=== PATIENT | male | born 1945 | race Caucasian/White ===

== ENCOUNTER 2021-01-23 13:04 | Observation (INO) | payer OTHER ==
[2021-01-23 13:49] LABS: BASO % 0.8 % (0-2.0); EOS % 0.5 % (0-4.5); HEMATOCRIT 45.1 % (35.4-49); HEMOGLOBIN 15.8 GM/dL (11.7-16.9); LYMPH % 23.2 % (8-40); MCH 30.2 pg (25.7-33.7); MEAN CELL VOLUME 86.5 fl (80-96); MEAN PLT VOLUME 9.6 fl (7.5-11.1); MONO % 11.9 % (3.8-10.2); NEUT % 63.6 % (42.8-82.8); PLATELET COUNT 117 10^3/uL (134-434); RBC 5.21 M/mm3 (4.00-5.60); RDW 14.1 % (11.9-15.9); WHITE BLOOD COUNT 5.1 K/mm3 (4.0-10.0)
[2021-01-23 14:13] LABS: CALCIUM 8.8 mg/dL (8.5-10.1)
[2021-01-23 14:14] LABS: ALBUMIN 4.1 g/dl (3.4-5.0); BLOOD UREA NITROGEN 15.4 mg/dL (7-18)
[2021-01-23] MEDS ORDERED: SODIUM CHLORIDE 0.9% 500 ML INFUS.BAG IV ONE (14:17)
[2021-01-23 14:18] LABS: BILIRUBIN,TOTAL 0.7 mg/dL (0.2-1)
[2021-01-23 14:19] LABS: TOT PROT 7.1 g/dl (6.4-8.2)
[2021-01-23] MEDS ORDERED: POTASSIUM CHLORIDE ORAL LIQUID 20 MEQ/15 ML PO ONE (14:25)
[2021-01-23] MEDS ORDERED: POTASSIUM CHLORIDE ORAL LIQUID 20 MEQ/15 ML ONE (14:39)
[2021-01-23 14:46] LABS: URINE APPEARANCE CLEAR; URINE BILIRUBIN NEGATIVE (NEGATIVE); URINE COLOR YELLOW; URINE GLUCOSE (UA) NEGATIVE (NEGATIVE); URINE KETONE NEGATIVE (NEGATIVE); URINE LEUK ESTERASE NEGATIVE (NEGATIVE); URINE NITRITE NEGATIVE (NEGATIVE); URINE PROTEIN TRACE (NEGATIVE)
[2021-01-23] MEDS ORDERED: SODIUM CHLORIDE 1,000 ML IV SCH (17:15)
[2021-01-23] MEDS ORDERED: ONDANSETRON 4 MG/2 ML VIAL IVPUSH PRN (17:43)
[2021-01-23] MEDS ORDERED: LATANOPROST 0.005% OPHTH SOLN 2.5ML BOTTLE OU SCH (17:45)
[2021-01-23] MEDS ORDERED: KETOROLAC TROMETHAMINE 0.5% EYE DROP 1 DROP DROPS OP SCH (17:45)
[2021-01-23] MEDS: traZODone HCL 50 MG TABLET (FP) PO SCH (22:17)
[2021-01-23] MEDS: ROSUVASTATIN CA 20 MG TABLET (FP) PO SCH (22:17)
[2021-01-23] MEDS: INSULIN SLIDING SCALE (NOVOLOG) 1 VIAL SQ SCH (22:18)
[2021-01-24 01:20] VITALS: BMI 27.8
[2021-01-24] MEDS: INSULIN SLIDING SCALE (NOVOLOG) 1 VIAL SQ SCH ×4 (06:11→22:01)
[2021-01-24 07:10] LABS: ALBUMIN 3.8 g/dl (3.4-5.0); CALCIUM 8.7 mg/dL (8.5-10.1)
[2021-01-24 07:11] LABS: BLOOD UREA NITROGEN 11.5 mg/dL (7-18)
[2021-01-24 07:12] LABS: BILIRUBIN,TOTAL 0.7 mg/dL (0.2-1); TOT PROT 6.6 g/dl (6.4-8.2)
[2021-01-24] MEDS: ENALAPRIL MALEATE 10 MG TABLET PO SCH (09:21)
[2021-01-24] MEDS: PANTOPRAZOLE 40 MG TABLET PO SCH (09:21)
[2021-01-24] MEDS: ALLOPURINOL 300 MG TABLET (FP) PO SCH (09:21)
[2021-01-24] MEDS: ENOXAPARIN NA (PORCINE) 40 MG/0.4 ML DISP.SYRIN SQ SCH (09:22)
[2021-01-24] MEDS ORDERED: SODIUM CHLORIDE 500 ML IV STA (10:10)
[2021-01-24] MEDS: KETOROLAC TROMETHAMINE 0.5% EYE DROP 1 DROP DROPS OU SCH ×2 (17:21→22:01)
[2021-01-24] MEDS ORDERED: PT OWN MED DRAWER 7, Y5N ONE (21:48)
[2021-01-24] MEDS: traZODone HCL 50 MG TABLET (FP) PO SCH (21:59)
[2021-01-24] MEDS: ROSUVASTATIN CA 20 MG TABLET (FP) PO SCH (21:59)
[2021-01-24] MEDS: LATANOPROST 0.005% OPHTH SOLN 2.5ML BOTTLE OU SCH (22:00)
[2021-01-25] MEDS: INSULIN SLIDING SCALE (NOVOLOG) 1 VIAL SQ SCH ×4 (06:16→21:16)
[2021-01-25 07:31] LABS: HEMATOCRIT 47.3 % (35.4-49); HEMOGLOBIN 16.1 GM/dL (11.7-16.9); MCH 30.1 pg (25.7-33.7); MEAN CELL VOLUME 88.6 fl (80-96); MEAN PLT VOLUME 9.9 fl (7.5-11.1); PLATELET COUNT 114 10^3/uL (134-434); RBC 5.34 M/mm3 (4.00-5.60); WHITE BLOOD COUNT 5.3 K/mm3 (4.0-10.0)
[2021-01-25] MEDS: PATIENT'S OWN MEDICATION (NON-FORMULARY) (Olopatadine Hcl [Olopatadine Hcl] 2.5 ML Drops) SCH ×2 (07:37→07:38)
[2021-01-25 07:58] LABS: ALBUMIN 4.2 g/dl (3.4-5.0); BLOOD UREA NITROGEN 13.5 mg/dL (7-18); MAGNESIUM 2.1 mg/dL (1.8-2.4)
[2021-01-25 08:01] LABS: CREATININE 0.9 mg/dL (0.55-1.3); PHOSPHOROUS 3.2 mg/dL (2.5-4.9)
[2021-01-25 08:03] LABS: BILIRUBIN,TOTAL 0.8 mg/dL (0.2-1)
[2021-01-25] MEDS ORDERED: PT OWN MED DRAWER 7, Y5N ONE (08:41)
[2021-01-25] MEDS: ACETAMINOPHEN 325 MG TABLET (FP) PO PRN ×2 (08:54→20:10)
[2021-01-25] MEDS ORDERED: POTASSIUM CHLORIDE ORAL LIQUID 20 MEQ/15 ML PO ONE (09:00)
[2021-01-25] MEDS: ENALAPRIL MALEATE 10 MG TABLET PO SCH (09:02)
[2021-01-25] MEDS: ALLOPURINOL 300 MG TABLET (FP) PO SCH (09:02)
[2021-01-25] MEDS: PANTOPRAZOLE 40 MG TABLET PO SCH (09:03)
[2021-01-25] MEDS: ENOXAPARIN NA (PORCINE) 40 MG/0.4 ML DISP.SYRIN SQ SCH (09:04)
[2021-01-25] MEDS: KETOROLAC TROMETHAMINE 0.5% EYE DROP 1 DROP DROPS OU SCH ×4 (09:04→21:16)
[2021-01-25] MEDS: SODIUM CHLORIDE 1,000 ML IV SCH (10:57)
[2021-01-25] MEDS ORDERED: traZODone HCL 50 MG TABLET (FP) PO SCH (14:44)
[2021-01-25] MEDS: ROSUVASTATIN CA 20 MG TABLET (FP) PO SCH (21:16)
[2021-01-25] MEDS: LATANOPROST 0.005% OPHTH SOLN 2.5ML BOTTLE OU SCH (21:16)
[2021-01-26 00:40] LABS: N-TERMINAL BNP 84.9 pg/ml (5-450)
[2021-01-26] MEDS: INSULIN SLIDING SCALE (NOVOLOG) 1 VIAL SQ SCH ×3 (06:15→17:12)
[2021-01-26 07:34] LABS: HEMATOCRIT 48.5 % (35.4-49); HEMOGLOBIN 16.3 GM/dL (11.7-16.9); MCH 29.8 pg (25.7-33.7); MCHC 33.5 g/dl (32.0-35.9); MEAN CELL VOLUME 88.9 fl (80-96); MEAN PLT VOLUME 9.9 fl (7.5-11.1); PLATELET COUNT 120 10^3/uL (134-434); RBC 5.46 M/mm3 (4.00-5.60); RDW 14.1 % (11.9-15.9); WHITE BLOOD COUNT 4.6 K/mm3 (4.0-10.0)
[2021-01-26 07:53] LABS: ALBUMIN 4.1 g/dl (3.4-5.0); BLOOD UREA NITROGEN 10.4 mg/dL (7-18); CALCIUM 8.8 mg/dL (8.5-10.1)
[2021-01-26 07:57] LABS: CREATININE 0.8 mg/dL (0.55-1.3); PHOSPHOROUS 3.1 mg/dL (2.5-4.9)
[2021-01-26 07:58] LABS: BILIRUBIN,TOTAL 0.9 mg/dL (0.2-1); TOT PROT 7.1 g/dl (6.4-8.2)
[2021-01-26] MEDS: ENALAPRIL MALEATE 10 MG TABLET PO SCH (09:17)
[2021-01-26] MEDS: PANTOPRAZOLE 40 MG TABLET PO SCH (09:17)
[2021-01-26] MEDS: ALLOPURINOL 300 MG TABLET (FP) PO SCH (09:17)
[2021-01-26] MEDS: ENOXAPARIN NA (PORCINE) 40 MG/0.4 ML DISP.SYRIN SQ SCH (09:17)
[2021-01-26] MEDS: KETOROLAC TROMETHAMINE 0.5% EYE DROP 1 DROP DROPS OU SCH ×3 (09:17→17:12)
[2021-01-26] MEDS ORDERED: POTASSIUM CHLORIDE ORAL LIQUID 20 MEQ/15 ML PO ONE (09:30)
[2021-01-26] MEDS ORDERED: POTASSIUM CHLORIDE TABS 20 MEQ TABLET.ER (FP) PO SCH (10:00)
[2021-01-26] MEDS: SODIUM CHLORIDE 1,000 ML IV SCH (13:02)
[2021-01-26] MEDS ORDERED: DOBUTAMINE HCL 100,000 MCG in DEXTROSE 5%-WATER - 92 ML IVPB ONE (14:30)
[2021-01-26 14:51] VITALS: BP 153/89; PULSE 52; TEMP 98
== END 2021-01-26 18:15 | disposition home or self-care (01) ==
LOC: JER 13:04 → JERBED 13:58 → INTOOBSV 13:58 → J4S 19:19
PROVIDERS: ADMIT Internal Medicine; ATTEND Internal Medicine
PROC: 3E033GC Introduction of Other Therapeutic Substance into Peripheral Vein, Percutaneous Approach (ICD-10-PCS; principal; 2021-01-23)
PROC: 3E0337Z Introduction of Electrolytic and Water Balance Substance into Peripheral Vein, Percutaneous Approach (ICD-10-PCS; 2021-01-23)
PROC: 3E013GC Introduction of Other Therapeutic Substance into Subcutaneous Tissue, Percutaneous Approach (ICD-10-PCS; 2021-01-23)
DX: E87.1 Hypo-osmolality and hyponatremia (principal); E86.0 Dehydration; R55 Syncope and collapse; E87.6 Hypokalemia; I10 Essential (primary) hypertension; I25.10 Atherosclerotic heart disease of native coronary artery without angina pectoris; I25.2 Old myocardial infarction; E11.9 Type 2 diabetes mellitus without complications; M19.90 Unspecified osteoarthritis, unspecified site; M10.9 Gout, unspecified; R00.1 Bradycardia, unspecified; Z79.4 Long term (current) use of insulin; Z95.5 Presence of coronary angioplasty implant and graft; H53.8 Other visual disturbances; R53.81 Other malaise; R42 Dizziness and giddiness
CPT/HCPCS: 36415; 70450-TC; 71045-TC-FY; 72125-TC; 80053; 80061; 81003; 82550; 82553; 82962; 83036; 83721; 83735; 83880; 84100; 84443; 84484; 85025; 85027; 87086; 93005; 93010; 93306-TC; 93351; 93880-TC; 96361; 96365; 96366; 96372; 99285-25; C9803; G0378; U0003; U0005

== ENCOUNTER 2021-01-28 19:39 | Inpatient (IN) | payer OTHER ==
[2021-01-28 20:59] LABS: BASO % 0.5 % (0-2.0); EOS % 1.2 % (0-4.5); HEMATOCRIT 47.9 % (35.4-49); HEMOGLOBIN 16.2 GM/dL (11.7-16.9); LYMPH % 36.6 % (8-40); MCH 30.1 pg (25.7-33.7); MCHC 33.9 g/dl (32.0-35.9); MEAN CELL VOLUME 88.8 fl (80-96); MEAN PLT VOLUME 10.3 fl (7.5-11.1); MONO % 12.5 % (3.8-10.2); NEUT % 49.2 % (42.8-82.8); PLATELET COUNT 127 10^3/uL (134-434); RBC 5.39 M/mm3 (4.00-5.60); WHITE BLOOD COUNT 5.9 K/mm3 (4.0-10.0)
[2021-01-28 21:29] LABS: ALBUMIN 4.3 g/dl (3.4-5.0); BLOOD UREA NITROGEN 17.2 mg/dL (7-18); CALCIUM 9.2 mg/dL (8.5-10.1)
[2021-01-28 21:34] LABS: BILIRUBIN,TOTAL 0.6 mg/dL (0.2-1); TOT PROT 7.4 g/dl (6.4-8.2)
[2021-01-28] MEDS ORDERED: LIDOCAINE PATCH REMOVAL MC SCH (22:00)
[2021-01-28] MEDS ORDERED: ACETAMINOPHEN 1000 MG/100 ML VIAL (NON FORMULARY) IVPB ONE (22:01)
[2021-01-28] MEDS ORDERED: LIDOCAINE 5% TOPICAL PATCH TP ONE (22:01)
[2021-01-28 22:02] LABS: URINE APPEARANCE CLEAR; URINE BILIRUBIN NEGATIVE (NEGATIVE); URINE COLOR YELLOW; URINE GLUCOSE (UA) NEGATIVE (NEGATIVE); URINE KETONE NEGATIVE (NEGATIVE); URINE LEUK ESTERASE NEGATIVE (NEGATIVE); URINE NITRITE NEGATIVE (NEGATIVE); URINE PROTEIN NEGATIVE (NEGATIVE); URINE UROBILINOGEN 0.2 mg/dL (0.2-1.0)
[2021-01-28] MEDS ORDERED: POTASSIUM CHLORIDE TABS 20 MEQ TABLET.ER (FP) PO ONE ×2 (22:07→22:16)
[2021-01-28] MEDS ORDERED: LIDOCAINE 5% TOPICAL PATCH ONE (22:16)
[2021-01-28] MEDS ORDERED: ACETAMINOPHEN INJECTION 100 ML IVPB ONE (22:16)
[2021-01-29] MEDS ORDERED: KCL 10 MEQ IVPB 10 MEQ/100 ML INFUS.BAG IVPB SCH (02:45)
[2021-01-29] MEDS ORDERED: POTASSIUM CHLORIDE TABS 20 MEQ TABLET.ER (FP) PO ONE (03:33)
[2021-01-29] MEDS ORDERED: amLODIPine BESYLATE 5 MG TABLET (FP) PO SCH ×3 (03:35→22:00)
[2021-01-29] MEDS: INSULIN SLIDING SCALE (NOVOLOG) 1 VIAL SQ SCH ×4 (06:33→21:36)
[2021-01-29] MEDS ORDERED: ENALAPRIL MALEATE 10 MG TABLET PO SCH ×2 (07:00→10:00)
[2021-01-29 09:17] LABS: HEMOGLOBIN 16.9 GM/dL (11.7-16.9); MCH 29.8 pg (25.7-33.7); MCHC 33.8 g/dl (32.0-35.9); MEAN CELL VOLUME 88.3 fl (80-96); MEAN PLT VOLUME 10.2 fl (7.5-11.1); PLATELET COUNT 115 10^3/uL (134-434); RBC 5.66 M/mm3 (4.00-5.60); RDW 13.8 % (11.9-15.9); WHITE BLOOD COUNT 5.2 K/mm3 (4.0-10.0)
[2021-01-29 09:39] LABS: ALBUMIN 4.3 g/dl (3.4-5.0); BILIRUBIN,TOTAL 0.8 mg/dL (0.2-1); BLOOD UREA NITROGEN 13.7 mg/dL (7-18)
[2021-01-29 09:41] LABS: CALCIUM 8.8 mg/dL (8.5-10.1)
[2021-01-29 09:42] LABS: CREATININE 0.8 mg/dL (0.55-1.3); MAGNESIUM 2.1 mg/dL (1.8-2.4)
[2021-01-29 09:43] LABS: PHOSPHOROUS 3.3 mg/dL (2.5-4.9); TOT PROT 7.3 g/dl (6.4-8.2)
[2021-01-29] MEDS ORDERED: LIDOCAINE PATCH REMOVAL MC ONE (10:00)
[2021-01-29] MEDS: ENOXAPARIN NA (PORCINE) 40 MG/0.4 ML DISP.SYRIN SQ SCH (10:31)
[2021-01-29] MEDS: ENALAPRIL MALEATE 10 MG TABLET PO SCH (21:37)
[2021-01-30] MEDS: INSULIN SLIDING SCALE (NOVOLOG) 1 VIAL SQ SCH ×4 (06:58→22:12)
[2021-01-30] MEDS: ENOXAPARIN NA (PORCINE) 40 MG/0.4 ML DISP.SYRIN SQ SCH (09:12)
[2021-01-30] MEDS: ENALAPRIL MALEATE 10 MG TABLET PO SCH ×2 (09:12→22:06)
[2021-01-30] MEDS ORDERED: ENALAPRIL MALEATE 10 MG TABLET PO ONE (12:58)
[2021-01-30] MEDS ORDERED: amLODIPine BESYLATE 10 MG TABLET (FP) PO ONE ×2 (12:58→13:45)
[2021-01-30] MEDS ORDERED: MAGNESIUM SULF 50% (8.12 MEQ/2 ML-1 GM VIAL) IVPB ONE (13:44)
[2021-01-30 15:06] VITALS: BMI 27.2
[2021-01-30] MEDS ORDERED: amLODIPine BESYLATE 10 MG TABLET (FP) PO SCH (22:00)
[2021-01-31] MEDS: INSULIN SLIDING SCALE (NOVOLOG) 1 VIAL SQ SCH ×2 (06:37→11:49)
[2021-01-31 06:59] LABS: BASO % 0.6 % (0-2.0); EOS % 1.7 % (0-4.5); HEMATOCRIT 45.3 % (35.4-49); HEMOGLOBIN 15.8 GM/dL (11.7-16.9); LYMPH % 32.3 % (8-40); MCH 30.6 pg (25.7-33.7); MCHC 34.8 g/dl (32.0-35.9); MEAN CELL VOLUME 87.9 fl (80-96); MEAN PLT VOLUME 10.1 fl (7.5-11.1); MONO % 11.2 % (3.8-10.2); NEUT % 54.2 % (42.8-82.8); PLATELET COUNT 105 10^3/uL (134-434); RBC 5.16 M/mm3 (4.00-5.60); RDW 14.3 % (11.9-15.9); WHITE BLOOD COUNT 5.5 K/mm3 (4.0-10.0)
[2021-01-31 07:05] LABS: CALCIUM 8.8 mg/dL (8.5-10.1)
[2021-01-31 07:06] LABS: BLOOD UREA NITROGEN 16.3 mg/dL (7-18); MAGNESIUM 2.2 mg/dL (1.8-2.4)
[2021-01-31 07:10] LABS: BILIRUBIN,TOTAL 0.9 mg/dL (0.2-1)
[2021-01-31 07:12] LABS: CREATININE 0.9 mg/dL (0.55-1.3)
[2021-01-31 07:17] LABS: TOT PROT 6.7 g/dl (6.4-8.2)
[2021-01-31] MEDS: ENALAPRIL MALEATE 10 MG TABLET PO SCH (09:58)
[2021-01-31] MEDS: ENOXAPARIN NA (PORCINE) 40 MG/0.4 ML DISP.SYRIN SQ SCH (09:58)
[2021-01-31 11:13] VITALS: BP 149/85; PULSE 55; TEMP 97.7
== END 2021-01-31 14:38 | disposition home or self-care (01) | DRG 305 ==
LOC: JER 19:39 → JERBED 23:12 → J4S 01-29 03:15
PROVIDERS: ADMIT Internal Medicine; ATTEND Internal Medicine
DX: I16.0 Hypertensive urgency (principal); I50.32 Chronic diastolic (congestive) heart failure; E11.9 Type 2 diabetes mellitus without complications; M10.9 Gout, unspecified; H35.30 Unspecified macular degeneration; I25.2 Old myocardial infarction; I11.0 Hypertensive heart disease with heart failure; R91.1 Solitary pulmonary nodule; R07.89 Other chest pain; R00.1 Bradycardia, unspecified; I25.10 Atherosclerotic heart disease of native coronary artery without angina pectoris; Z95.5 Presence of coronary angioplasty implant and graft
CPT/HCPCS: 36415; 70450-TC; 71250-TC; 80053; 81003; 82550; 82553; 82962; 83036; 83735; 84100; 84443; 84484; 85025; 85027; 93005; 93010; 99285-25; C9803; J0131; U0003; U0005

== ENCOUNTER 2021-07-25 07:17 | Inpatient (IN) | payer OTHER ==
[2021-07-25 07:35] VITALS: BMI 25.8
[2021-07-25] MEDS ORDERED: ACETAMINOPHEN 1000 MG/100 ML BAG IVPB ONE (08:13)
[2021-07-25 08:25] LABS: BASO % 0.2 % (0-2.0); EOS % 0.3 % (0-4.5); HEMATOCRIT 44.1 % (35.4-49); HEMOGLOBIN 15.4 GM/dL (11.7-16.9); LYMPH % 8.6 % (8-40); MCH 30.8 pg (25.7-33.7); MCHC 34.8 g/dl (32.0-35.9); MEAN CELL VOLUME 88.4 fl (80-96); MONO % 9.8 % (3.8-10.2); NEUT % 81.1 % (42.8-82.8); PLATELET COUNT 80 10^3/uL (134-434); RBC 4.99 M/mm3 (4.00-5.60); RDW 14.2 % (11.9-15.9); WHITE BLOOD COUNT 7.4 K/mm3 (4.0-10.0)
[2021-07-25 08:46] LABS: CHLORIDE 102 mmol/L (98-107); SODIUM 135 mmol/L (136-145)
[2021-07-25 08:49] LABS: CALCIUM 8.6 mg/dL (8.5-10.1)
[2021-07-25 08:50] LABS: ALBUMIN 3.4 g/dl (3.4-5.0); ANION GAP 8 MMOL/L (8-16); BLOOD UREA NITROGEN 12.8 mg/dL (7-18); CO2 25 mmol/L (21-32); GLUCOSE,RANDOM 146 mg/dL (74-106); MAGNESIUM 2.1 mg/dL (1.8-2.4)
[2021-07-25 08:53] LABS: SGOT/AST 20 U/L (15-37); SGPT/ALT 26 U/L (13-61)
[2021-07-25 08:54] LABS: BILIRUBIN,TOTAL 0.7 mg/dL (0.2-1)
[2021-07-25 08:55] LABS: TOT PROT 6.6 g/dl (6.4-8.2)
[2021-07-25 08:56] LABS: ALK PHOS 78 U/L (45-117)
[2021-07-25 09:13] LABS: PLATELET ESTIMATE DECREASED
[2021-07-25] MEDS ORDERED: ACETAMINOPHEN INJECTION 100 ML IVPB ONE (11:38)
[2021-07-25 12:42] LABS: EPI CELLS >36 /uL (0-25.1); HYALINE CASTS 5 /uL (0-3.1); PH,URINE 7.5 (5.0-8.0); URINE APPEARANCE CLEAR; URINE BACTERIA 52 /uL (0-1359); URINE BILIRUBIN NEGATIVE (NEGATIVE); URINE COLOR YELLOW; URINE GLUCOSE (UA) NEGATIVE (NEGATIVE); URINE KETONE NEGATIVE (NEGATIVE); URINE LEUK ESTERASE NEGATIVE (NEGATIVE); URINE NITRITE NEGATIVE (NEGATIVE); URINE PROTEIN 1+ (NEGATIVE); URINE RBC 19 /uL (0-23.9); URINE WBC 20 /uL (0-25.8)
[2021-07-25] MEDS: INSULIN SLIDING SCALE (NOVOLOG) 1 VIAL SQ SCH ×2 (19:01→22:35)
[2021-07-25] MEDS ORDERED: ROSUVASTATIN CA 40 MG TABLET PO SCH (22:00)
[2021-07-26] MEDS ORDERED: ACETAMINOPHEN 325 MG TABLET (FP) ONE (04:43)
[2021-07-26] MEDS: ACETAMINOPHEN 325 MG TABLET (FP) PO PRN (05:28)
[2021-07-26] MEDS: INSULIN SLIDING SCALE (NOVOLOG) 1 VIAL SQ SCH ×4 (07:16→22:23)
[2021-07-26] MEDS ORDERED: PANTOPRAZOLE 40 MG TABLET ONE (10:23)
[2021-07-26] MEDS ORDERED: ENOXAPARIN NA (PORCINE) 40 MG/0.4 ML DISP.SYRIN SQ ONE (10:23)
[2021-07-26] MEDS: ENOXAPARIN NA (PORCINE) 40 MG/0.4 ML DISP.SYRIN SQ SCH (11:17)
[2021-07-26] MEDS: PANTOPRAZOLE 40 MG TABLET PO SCH (11:17)
[2021-07-26] MEDS ORDERED: BENZOCAINE/MENTH/CETYLPYRD CL 1 EACH LOZENGE MM ONE (13:48)
[2021-07-26] MEDS: BENZOCAINE/MENTH/CETYLPYRD CL 1 EACH LOZENGE MM PRN (13:49)
[2021-07-26] MEDS: amLODIPine BESYLATE 10 MG TABLET (FP) PO SCH (17:34)
[2021-07-26] MEDS: ROSUVASTATIN CA 20 MG TABLET PO SCH (22:45)
[2021-07-26] MEDS: LATANOPROST 0.005% OPHTH SOLN 2.5ML BOTTLE OU SCH (22:46)
[2021-07-26] MEDS: traZODone HCL 50 MG TABLET (FP) PO SCH (22:46)
[2021-07-26] MEDS: ENALAPRIL MALEATE 10 MG TABLET PO SCH (22:46)
[2021-07-27] MEDS: INSULIN SLIDING SCALE (NOVOLOG) 1 VIAL SQ SCH ×4 (06:09→21:41)
[2021-07-27] MEDS: ACETAMINOPHEN 325 MG TABLET (FP) PO PRN (06:11)
[2021-07-27] MEDS: guaiFENesin 200 MG/10 ML 10 ML UNIT-DOSE CUPS PO PRN ×2 (06:11→21:37)
[2021-07-27 06:53] LABS: HEMATOCRIT 43.4 % (35.4-49); HEMOGLOBIN 14.8 GM/dL (11.7-16.9); MCH 30.1 pg (25.7-33.7); MCHC 34.2 g/dl (32.0-35.9); MEAN CELL VOLUME 88.1 fl (80-96); MEAN PLT VOLUME 10.1 fl (7.5-11.1); PLATELET COUNT 77 10^3/uL (134-434); RBC 4.92 M/mm3 (4.00-5.60); WHITE BLOOD COUNT 7.3 K/mm3 (4.0-10.0)
[2021-07-27 07:14] LABS: CALCIUM 8.3 mg/dL (8.5-10.1)
[2021-07-27 07:15] LABS: ALBUMIN 3.4 g/dl (3.4-5.0); BLOOD UREA NITROGEN 13.4 mg/dL (7-18); MAGNESIUM 1.9 mg/dL (1.8-2.4)
[2021-07-27 07:17] LABS: CREATININE 0.9 mg/dL (0.55-1.3)
[2021-07-27 07:19] LABS: BILIRUBIN,TOTAL 0.5 mg/dL (0.2-1); TOT PROT 6.5 g/dl (6.4-8.2)
[2021-07-27 08:58] LABS: ERYTHROCYTE SEDIMENTATION RATE 8 mm/hr (0-20)
[2021-07-27] MEDS ORDERED: ENALAPRIL MALEATE 10 MG TABLET PO SCH (10:00)
[2021-07-27] MEDS: amLODIPine BESYLATE 10 MG TABLET (FP) PO SCH (10:15)
[2021-07-27] MEDS: ALLOPURINOL 300 MG TABLET (FP) PO SCH (10:15)
[2021-07-27] MEDS: PANTOPRAZOLE 40 MG TABLET PO SCH (10:15)
[2021-07-27] MEDS: ENALAPRIL MALEATE 10 MG TABLET PO SCH ×2 (10:15→21:38)
[2021-07-27] MEDS: ENOXAPARIN NA (PORCINE) 40 MG/0.4 ML DISP.SYRIN SQ SCH (10:18)
[2021-07-27] MEDS: ASPIRIN 81 MG CHEWABLE TABLETS PO SCH (10:18)
[2021-07-27] MEDS: BENZOCAINE/MENTH/CETYLPYRD CL 1 EACH LOZENGE MM PRN ×2 (10:20→22:00)
[2021-07-27] MEDS: POTASSIUM CHLORIDE TABS 20 MEQ TABLET.ER (FP) PO SCH ×2 (11:55→18:41)
[2021-07-27] MEDS: LACTATED RINGERS SOLUTION 1,000 ML/1,000 ML INFUS.BAG IV SCH (11:56)
[2021-07-27] MEDS ORDERED: PT OWN MED DRAWER 7, Y5N ONE (21:24)
[2021-07-27] MEDS: traZODone HCL 50 MG TABLET (FP) PO SCH (21:37)
[2021-07-27] MEDS: ROSUVASTATIN CA 20 MG TABLET PO SCH (21:38)
[2021-07-27] MEDS: LATANOPROST 0.005% OPHTH SOLN 2.5ML BOTTLE OU SCH (22:40)
[2021-07-28] MEDS: BENZOCAINE/MENTH/CETYLPYRD CL 1 EACH LOZENGE MM PRN ×2 (02:00→06:58)
[2021-07-28] MEDS: ACETAMINOPHEN 325 MG TABLET (FP) PO PRN (04:39)
[2021-07-28] MEDS ORDERED: PT OWN MED DRAWER 7, Y5N ONE ×2 (06:46→14:58)
[2021-07-28] MEDS: INSULIN SLIDING SCALE (NOVOLOG) 1 VIAL SQ SCH ×4 (06:55→21:44)
[2021-07-28 07:18] LABS: HEMATOCRIT 43.5 % (35.4-49); HEMOGLOBIN 14.3 GM/dL (11.7-16.9); MCH 29.4 pg (25.7-33.7); MCHC 32.9 g/dl (32.0-35.9); MEAN CELL VOLUME 89.3 fl (80-96); MEAN PLT VOLUME 10.4 fl (7.5-11.1); PLATELET COUNT 85 10^3/uL (134-434); RBC 4.87 M/mm3 (4.00-5.60); RDW 14.2 % (11.9-15.9); WHITE BLOOD COUNT 6.4 K/mm3 (4.0-10.0)
[2021-07-28 07:26] LABS: BLOOD UREA NITROGEN 13.2 mg/dL (7-18); CALCIUM 8.5 mg/dL (8.5-10.1); MAGNESIUM 2.1 mg/dL (1.8-2.4)
[2021-07-28 07:29] LABS: CREATININE 0.9 mg/dL (0.55-1.3)
[2021-07-28 07:31] LABS: BILIRUBIN,TOTAL 0.4 mg/dL (0.2-1); TOT PROT 6.2 g/dl (6.4-8.2)
[2021-07-28 07:34] LABS: ALBUMIN 3.5 g/dl (3.4-5.0)
[2021-07-28] MEDS: LACTATED RINGERS SOLUTION 1,000 ML/1,000 ML INFUS.BAG IV SCH (08:00)
[2021-07-28 08:57] LABS: ERYTHROCYTE SEDIMENTATION RATE 11 mm/hr (0-20)
[2021-07-28] MEDS: POLYETHYLENE GLYCOL (HEALTHYLAX) 3350 17 GM PACKET PO SCH ×3 (09:20→21:52)
[2021-07-28] MEDS: amLODIPine BESYLATE 10 MG TABLET (FP) PO SCH (09:20)
[2021-07-28] MEDS: CHOLECALCIFEROL (VIT D3) 1,000 UNIT (25 MCG) TABLET PO SCH (09:20)
[2021-07-28] MEDS: ENALAPRIL MALEATE 10 MG TABLET PO SCH ×2 (09:20→21:44)
[2021-07-28] MEDS: ZINC SULFATE 220 MG CAPSULE (FP) PO SCH (09:20)
[2021-07-28] MEDS: SENNOSIDES 8.6MG TABLET (FP) PO SCH (09:20)
[2021-07-28] MEDS: ALLOPURINOL 300 MG TABLET (FP) PO SCH (09:21)
[2021-07-28] MEDS: PANTOPRAZOLE 40 MG TABLET PO SCH (09:21)
[2021-07-28] MEDS: ASCORBIC ACID 500 MG TABLET (FP) PO SCH (09:22)
[2021-07-28] MEDS ORDERED: ACETAMINOPHEN 1000 MG/100 ML BAG IVPB PRN ×2 (11:14→11:55)
[2021-07-28] MEDS ORDERED: MECLIZINE HCL 25 MG TABLET (FP) PO PRN (11:15)
[2021-07-28] MEDS ORDERED: ACETAMINOPHEN 325 MG TABLET (FP) PO PRN (12:28)
[2021-07-28] MEDS: predniSONE 10 MG TABLET (UD) PO SCH (12:44)
[2021-07-28] MEDS ORDERED: LIDOCAINE 5% TOPICAL PATCH TP ONE (14:08)
[2021-07-28] MEDS: ROSUVASTATIN CA 20 MG TABLET PO SCH (21:44)
[2021-07-28] MEDS: LATANOPROST 0.005% OPHTH SOLN 2.5ML BOTTLE OU SCH (21:45)
[2021-07-28] MEDS: traZODone HCL 50 MG TABLET (FP) PO SCH (21:45)
[2021-07-28] MEDS ORDERED: LIDOCAINE PATCH REMOVAL MC ONE (22:00)
[2021-07-29] MEDS: INSULIN SLIDING SCALE (NOVOLOG) 1 VIAL SQ SCH ×4 (06:46→21:29)
[2021-07-29 07:20] LABS: HEMATOCRIT 45.1 % (35.4-49); HEMOGLOBIN 14.9 GM/dL (11.7-16.9); MCH 29.3 pg (25.7-33.7); MEAN CELL VOLUME 88.6 fl (80-96); MEAN PLT VOLUME 10.9 fl (7.5-11.1); PLATELET COUNT 99 10^3/uL (134-434); RBC 5.09 M/mm3 (4.00-5.60); RDW 13.9 % (11.9-15.9); WHITE BLOOD COUNT 5.8 K/mm3 (4.0-10.0)
[2021-07-29 07:43] LABS: CALCIUM 8.7 mg/dL (8.5-10.1)
[2021-07-29 07:44] LABS: BLOOD UREA NITROGEN 16.3 mg/dL (7-18)
[2021-07-29 07:47] LABS: CREATININE 0.8 mg/dL (0.55-1.3)
[2021-07-29] MEDS: CHOLECALCIFEROL (VIT D3) 1,000 UNIT (25 MCG) TABLET PO SCH (09:59)
[2021-07-29] MEDS: ASCORBIC ACID 500 MG TABLET (FP) PO SCH (09:59)
[2021-07-29] MEDS: SENNOSIDES 8.6MG TABLET (FP) PO SCH (09:59)
[2021-07-29] MEDS: ENALAPRIL MALEATE 10 MG TABLET PO SCH ×2 (09:59→21:18)
[2021-07-29] MEDS: predniSONE 10 MG TABLET (UD) PO SCH (09:59)
[2021-07-29] MEDS: ZINC SULFATE 220 MG CAPSULE (FP) PO SCH (09:59)
[2021-07-29] MEDS: amLODIPine BESYLATE 10 MG TABLET (FP) PO SCH (10:00)
[2021-07-29] MEDS: ALLOPURINOL 300 MG TABLET (FP) PO SCH (10:00)
[2021-07-29] MEDS: PANTOPRAZOLE 40 MG TABLET PO SCH (10:00)
[2021-07-29] MEDS: POLYETHYLENE GLYCOL (HEALTHYLAX) 3350 17 GM PACKET PO SCH ×2 (10:00→21:18)
[2021-07-29] MEDS ORDERED: ACETAMINOPHEN 325 MG TABLET (FP) PO PRN (11:15)
[2021-07-29] MEDS: ASPIRIN 81 MG CHEWABLE TABLETS PO SCH (11:50)
[2021-07-29] MEDS: ROSUVASTATIN CA 20 MG TABLET PO SCH (21:18)
[2021-07-29] MEDS: traZODone HCL 50 MG TABLET (FP) PO SCH (21:18)
[2021-07-29] MEDS: LATANOPROST 0.005% OPHTH SOLN 2.5ML BOTTLE OU SCH (21:30)
[2021-07-29] MEDS: LACTATED RINGERS SOLUTION 1,000 ML/1,000 ML INFUS.BAG IV SCH (22:45)
[2021-07-30 06:57] LABS: HEMATOCRIT 46.2 % (35.4-49); HEMOGLOBIN 15.3 GM/dL (11.7-16.9); MCH 29.3 pg (25.7-33.7); MCHC 33.2 g/dl (32.0-35.9); MEAN CELL VOLUME 88.2 fl (80-96); MEAN PLT VOLUME 10.5 fl (7.5-11.1); PLATELET COUNT 121 10^3/uL (134-434); RBC 5.24 M/mm3 (4.00-5.60); WHITE BLOOD COUNT 7.2 K/mm3 (4.0-10.0)
[2021-07-30] MEDS: INSULIN SLIDING SCALE (NOVOLOG) 1 VIAL SQ SCH ×4 (06:57→21:19)
[2021-07-30 07:11] LABS: CALCIUM 9.1 mg/dL (8.5-10.1)
[2021-07-30 07:12] LABS: BLOOD UREA NITROGEN 19.6 mg/dL (7-18)
[2021-07-30] MEDS ORDERED: PT OWN MED DRAWER 7, Y5N ONE (09:21)
[2021-07-30] MEDS: predniSONE 10 MG TABLET (UD) PO SCH (09:25)
[2021-07-30] MEDS: ASPIRIN 81 MG CHEWABLE TABLETS PO SCH (09:25)
[2021-07-30] MEDS: amLODIPine BESYLATE 10 MG TABLET (FP) PO SCH (09:28)
[2021-07-30] MEDS: POLYETHYLENE GLYCOL (HEALTHYLAX) 3350 17 GM PACKET PO SCH ×2 (09:28→21:09)
[2021-07-30] MEDS: ZINC SULFATE 220 MG CAPSULE (FP) PO SCH (09:29)
[2021-07-30] MEDS: SENNOSIDES 8.6MG TABLET (FP) PO SCH (09:29)
[2021-07-30] MEDS: PANTOPRAZOLE 40 MG TABLET PO SCH (09:29)
[2021-07-30] MEDS: ASCORBIC ACID 500 MG TABLET (FP) PO SCH (09:30)
[2021-07-30] MEDS: guaiFENesin 200 MG/10 ML 10 ML UNIT-DOSE CUPS PO PRN ×3 (09:30→21:19)
[2021-07-30] MEDS: ENALAPRIL MALEATE 10 MG TABLET PO SCH ×2 (09:30→21:09)
[2021-07-30] MEDS: ALLOPURINOL 300 MG TABLET (FP) PO SCH (09:30)
[2021-07-30] MEDS: CHOLECALCIFEROL (VIT D3) 1,000 UNIT (25 MCG) TABLET PO SCH (09:30)
[2021-07-30] MEDS: BENZOCAINE/MENTH/CETYLPYRD CL 1 EACH LOZENGE MM PRN (09:31)
[2021-07-30] MEDS ORDERED: ZOLPIDEM TARTRATE 5 MG TABLET PO PRN (10:11)
[2021-07-30] MEDS: LACTATED RINGERS SOLUTION 1,000 ML/1,000 ML INFUS.BAG IV SCH (14:13)
[2021-07-30] MEDS: ROSUVASTATIN CA 20 MG TABLET PO SCH (21:09)
[2021-07-30] MEDS: traZODone HCL 50 MG TABLET (FP) PO SCH (21:09)
[2021-07-30] MEDS: LATANOPROST 0.005% OPHTH SOLN 2.5ML BOTTLE OU SCH (21:13)
[2021-07-31] MEDS: INSULIN SLIDING SCALE (NOVOLOG) 1 VIAL SQ SCH ×4 (06:28→21:35)
[2021-07-31] MEDS: ASPIRIN 81 MG CHEWABLE TABLETS PO SCH (09:18)
[2021-07-31] MEDS: ENALAPRIL MALEATE 10 MG TABLET PO SCH ×2 (09:18→21:19)
[2021-07-31] MEDS: ALLOPURINOL 300 MG TABLET (FP) PO SCH (09:19)
[2021-07-31] MEDS: ZINC SULFATE 220 MG CAPSULE (FP) PO SCH (09:19)
[2021-07-31] MEDS: PANTOPRAZOLE 40 MG TABLET PO SCH (09:20)
[2021-07-31] MEDS: SENNOSIDES 8.6MG TABLET (FP) PO SCH (09:20)
[2021-07-31] MEDS: predniSONE 10 MG TABLET (UD) PO SCH (09:20)
[2021-07-31] MEDS: amLODIPine BESYLATE 10 MG TABLET (FP) PO SCH (09:20)
[2021-07-31] MEDS: CHOLECALCIFEROL (VIT D3) 1,000 UNIT (25 MCG) TABLET PO SCH (09:21)
[2021-07-31] MEDS: ENOXAPARIN NA (PORCINE) 40 MG/0.4 ML DISP.SYRIN SQ SCH (09:21)
[2021-07-31] MEDS: ASCORBIC ACID 500 MG TABLET (FP) PO SCH (09:21)
[2021-07-31] MEDS: POLYETHYLENE GLYCOL (HEALTHYLAX) 3350 17 GM PACKET PO SCH ×2 (09:22→21:19)
[2021-07-31] MEDS: guaiFENesin 200 MG/10 ML 10 ML UNIT-DOSE CUPS PO PRN (09:49)
[2021-07-31] MEDS: ROSUVASTATIN CA 20 MG TABLET PO SCH (21:19)
[2021-07-31] MEDS: traZODone HCL 50 MG TABLET (FP) PO SCH (21:19)
[2021-07-31] MEDS: LATANOPROST 0.005% OPHTH SOLN 2.5ML BOTTLE OU SCH (21:19)
[2021-08-01] MEDS: guaiFENesin 200 MG/10 ML 10 ML UNIT-DOSE CUPS PO PRN (06:04)
[2021-08-01] MEDS: INSULIN SLIDING SCALE (NOVOLOG) 1 VIAL SQ SCH ×4 (06:04→21:30)
[2021-08-01] MEDS: ENALAPRIL MALEATE 10 MG TABLET PO SCH ×2 (09:27→21:15)
[2021-08-01] MEDS: POLYETHYLENE GLYCOL (HEALTHYLAX) 3350 17 GM PACKET PO SCH ×2 (09:27→21:15)
[2021-08-01] MEDS: SENNOSIDES 8.6MG TABLET (FP) PO SCH (09:27)
[2021-08-01] MEDS: ASPIRIN 81 MG CHEWABLE TABLETS PO SCH (09:27)
[2021-08-01] MEDS: PANTOPRAZOLE 40 MG TABLET PO SCH (09:27)
[2021-08-01] MEDS: amLODIPine BESYLATE 10 MG TABLET (FP) PO SCH (09:27)
[2021-08-01] MEDS: ZINC SULFATE 220 MG CAPSULE (FP) PO SCH (09:27)
[2021-08-01] MEDS: ASCORBIC ACID 500 MG TABLET (FP) PO SCH (09:27)
[2021-08-01] MEDS: predniSONE 10 MG TABLET (UD) PO SCH (09:27)
[2021-08-01] MEDS: ENOXAPARIN NA (PORCINE) 40 MG/0.4 ML DISP.SYRIN SQ SCH (09:27)
[2021-08-01] MEDS: ALLOPURINOL 300 MG TABLET (FP) PO SCH (09:27)
[2021-08-01] MEDS: CHOLECALCIFEROL (VIT D3) 1,000 UNIT (25 MCG) TABLET PO SCH (09:28)
[2021-08-01] MEDS ORDERED: MECLIZINE HCL 25 MG TABLET (FP) PO PRN ×2 (14:34→14:45)
[2021-08-01] MEDS: ROSUVASTATIN CA 20 MG TABLET PO SCH (21:15)
[2021-08-01] MEDS: LATANOPROST 0.005% OPHTH SOLN 2.5ML BOTTLE OU SCH (21:15)
[2021-08-01] MEDS: traZODone HCL 50 MG TABLET (FP) PO SCH (21:15)
[2021-08-02] MEDS: INSULIN SLIDING SCALE (NOVOLOG) 1 VIAL SQ SCH ×2 (07:28→12:29)
[2021-08-02 07:43] LABS: BASO % 0.3 % (0-2.0); EOS % 0.6 % (0-4.5); HEMATOCRIT 46.8 % (35.4-49); HEMOGLOBIN 15.6 GM/dL (11.7-16.9); LYMPH % 27.6 % (8-40); MCH 29.4 pg (25.7-33.7); MCHC 33.3 g/dl (32.0-35.9); MEAN CELL VOLUME 88.3 fl (80-96); MEAN PLT VOLUME 10.2 fl (7.5-11.1); MONO % 10.9 % (3.8-10.2); NEUT % 60.6 % (42.8-82.8); PLATELET COUNT 156 10^3/uL (134-434); RDW 14.1 % (11.9-15.9); WHITE BLOOD COUNT 9.2 K/mm3 (4.0-10.0)
[2021-08-02 08:04] LABS: CALCIUM 8.8 mg/dL (8.5-10.1)
[2021-08-02 08:05] LABS: ALBUMIN 3.4 g/dl (3.4-5.0); BLOOD UREA NITROGEN 21.3 mg/dL (7-18)
[2021-08-02 08:10] LABS: BILIRUBIN,TOTAL 0.5 mg/dL (0.2-1); TOT PROT 6.8 g/dl (6.4-8.2)
[2021-08-02 09:04] VITALS: BP 146/89; PULSE 58; TEMP 98
[2021-08-02] MEDS: ASPIRIN 81 MG CHEWABLE TABLETS PO SCH (09:04)
[2021-08-02] MEDS: ZINC SULFATE 220 MG CAPSULE (FP) PO SCH (09:04)
[2021-08-02] MEDS: ENOXAPARIN NA (PORCINE) 40 MG/0.4 ML DISP.SYRIN SQ SCH (09:04)
[2021-08-02] MEDS: ENALAPRIL MALEATE 10 MG TABLET PO SCH (09:04)
[2021-08-02] MEDS: ASCORBIC ACID 500 MG TABLET (FP) PO SCH (09:04)
[2021-08-02] MEDS: SENNOSIDES 8.6MG TABLET (FP) PO SCH (09:04)
[2021-08-02] MEDS: ALLOPURINOL 300 MG TABLET (FP) PO SCH (09:04)
[2021-08-02] MEDS: PANTOPRAZOLE 40 MG TABLET PO SCH (09:04)
[2021-08-02] MEDS: amLODIPine BESYLATE 10 MG TABLET (FP) PO SCH (09:04)
[2021-08-02] MEDS: CHOLECALCIFEROL (VIT D3) 1,000 UNIT (25 MCG) TABLET PO SCH (09:04)
[2021-08-02] MEDS: POLYETHYLENE GLYCOL (HEALTHYLAX) 3350 17 GM PACKET PO SCH (09:11)
[2021-08-02] MEDS: guaiFENesin 200 MG/10 ML 10 ML UNIT-DOSE CUPS PO PRN (14:01)
== END 2021-08-02 17:54 | disposition home or self-care (01) | DRG 312 ==
LOC: JER 07:17 → INTOOBSV 07:58 → UNDOADMOB 07:58 → JERBED 07:58 → OBSVTOIN 13:28 → INTOOBSV 13:28 → JERBED 07-27 04:32 → J2W 07-27 04:32 → JERBED 07-28 13:28 → J2W 07-28 13:28 → OBSVTOIN 07-28 13:28
PROVIDERS: ADMIT Internal Medicine
DX: I95.1 Orthostatic hypotension (principal); U07.1 COVID-19; E87.1 Hypo-osmolality and hyponatremia; I50.32 Chronic diastolic (congestive) heart failure; R00.1 Bradycardia, unspecified; E11.9 Type 2 diabetes mellitus without complications; E78.00 Pure hypercholesterolemia, unspecified; I25.10 Atherosclerotic heart disease of native coronary artery without angina pectoris; M10.9 Gout, unspecified; E78.5 Hyperlipidemia, unspecified; D69.6 Thrombocytopenia, unspecified; I11.0 Hypertensive heart disease with heart failure; I25.2 Old myocardial infarction; F41.8 Other specified anxiety disorders; G47.00 Insomnia, unspecified; Z95.5 Presence of coronary angioplasty implant and graft
CPT/HCPCS: 36415; 70450-TC; 71045-TC-FY; 72125-TC; 72170-TC-FY; 80048; 80053; 81003; 82550; 82728; 82962; 83036; 83615; 83735; 84100; 84443; 84484; 85025; 85027; 85379; 85651; 85730; 86140; 87086; 87186; 87804; 93005; 93010; 97116-GP; 97161-GP; 99285-25; C9803; J0131; U0003; U0005